=== PATIENT | male | born 1940 | race American Indian/Alaskan Native ===

== ENCOUNTER 2021-06-12 07:30 | Emergency (ER) | payer MEDICARE ==
[2021-06-12 08:49] LABS: Basophils % (Auto) 0.3 % (0.0-1.8); Eosinophils % (Auto) 0.4 % (0.0-4.3); Hematocrit 32.4 % (35.5-45.6); Hemoglobin 9.9 gm/dl (11.8-15.2); Lymphocytes # (Auto) 0.6 K/mm3 (1.2-5.4); Lymphocytes % (Auto) 7.5 % (13.4-35.0); Mean Corpuscular HGB Conc 31 % (32-34); Mean Corpuscular Volume 77 fl (84-94); Monocytes # (Auto) 0.4 K/mm3 (0.0-0.8); Monocytes % (Auto) 5.6 % (0.0-7.3); Platelet Count 148 K/mm3 (140-440); Red Blood Count 4.21 M/mm3 (3.65-5.03); Red Cell Distribution Width 13.3 % (13.2-15.2)
[2021-06-12 09:12] LABS: Alanine Aminotransferase 13 units/L (7-56); Albumin 4.2 g/dL (3.9-5); BUN/Creatinine Ratio 17; Blood Urea Nitrogen 17 mg/dL (9-20); Calcium 9.8 mg/dL (8.4-10.2); Hemolysis Index 2
--- NOTE | 2021-06-12 09:52 | XRay Report ---
ABDOMINAL SERIES WITH CHEST X-RAY ONE VIEW HISTORY: Vomiting COMPARISON: None. IMPRESSION: Single view of the chest demonstrates normal heart size and clear lungs. Supine and uprig ht views of the abdomen demonstrate no evidence for obstruction, fluid levels or free air. There is n ormal stool in the colon. Cholecystectomy changes are noted. Signer Name: Coleman Johnson Jr, MD Signed: 06/12/2021 9:47 AM Workstation Name: [id number]
[2021-06-12 09:59] LABS: Bilirubin,Direct < 0.2 mg/dL (0-0.2)
--- NOTE | 2021-06-12 11:09 | Emergency Department Report ---
ED N/V/D HPI - General Chief complaint: Nausea/Vomiting/Diarrhea Stated complaint: NAUSEA/VOMITING Time Seen by Provider: 06/12/21 07:42 Source: EMS Mode of arrival: Stretcher Limitations: Altered Mental Status - History of Present Illness Initial comments: 81-year-old male, history of CVA with right-sided deficits, hypertension, diabetes, presents to ED with nausea vomiting. Patient presented from his personal group home following a couple episodes of emesis. Patient denies any abdominal pain, chest pain, trouble breathing. Patient given Zofran by EMS. MD complaint: nausea, vomiting -: This morning Associated Abdominal Pain: No Severity: mild Improves with: none Worsens with: none Associated Symptoms: nausea/vomiting. denies: chest pain, fever/chills, shortness of breath - Related Data Home Medications Medication Instructions Recorded Confirmed Last Taken Metformin HCl [Fortamet ER] 1,000 mg PO QDAY 10/17/13 04/16/14 04/15/14 Tamsulosin [Flomax] 8 mg PO QDAY 10/17/13 04/16/14 04/14/14 glipiZIDE [glipiZIDE XL] 5 mg PO QDAY 10/17/13 04/16/14 04/15/14 Previous Rx's Medication Instructions Recorded Last Taken Type Clopidogrel [Plavix] 75 mg PO QDAY #30 tablet 10/21/13 04/15/14 Rx Pantoprazole [Protonix TAB] 40 mg PO QDAY #30 tablet 10/21/13 04/15/14 Rx Simvastatin (Nf) [Zocor TAB] 20 mg PO QHS #30 tablet 10/21/13 04/15/14 Rx hydrALAZINE [Apresoline TAB] 50 mg PO Q8H #90 tab 10/21/13 04/15/14 Rx lisinopriL [Zestril TAB] 20 mg PO QDAY #30 tablet 10/21/13 04/15/14 Rx levoFLOXacin [Levaquin] 500 mg PO QDAY #7 tablet 04/18/14 Unknown Rx oxyCODONE /ACETAMINOPHEN [Percocet 1 tab PO Q6H PRN #20 tablet 04/18/14 Unknown Rx 5/325 mg] Ondansetron [Zofran Odt] 4 mg PO Q8HR PRN #20 tab.rapdis 06/12/21 Unknown Rx Allergies Allergy/AdvReac Type Severity Reaction Status Date / Time No Known Allergies Allergy Unverified 10/17/13 17:37 ED Review of Systems ROS: Stated complaint: NAUSEA/VOMITING Other details as noted in HPI Comment: All other systems reviewed and negative Constitutional: denies: fever Respiratory: denies: shortness of breath Cardiovascular: denies: chest pain Gastrointestinal: vomiting. denies: abdominal pain, diarrhea ED Past Medical Hx - Past Medical History Previous Medical History?: Yes Hx Hypertension: Yes Hx CVA: Yes (2002) Hx Diabetes: Yes (x 20 years) Hx Renal Disease: Yes Hx Headaches / Migraines: Yes Hx Dementia: Yes Additional medical history: A-fib, hyperlipidemia, anemia, BPH, depressive disorder, hypothyroidism - Surgical History Past Surgical History?: Yes Hx Cholecystectomy: Yes Additional Surgical History: unsure what type - Social History Smoking Status: Never Smoker - Medications Home Medications: Home Medications Medication Instructions Recorded Confirmed Last Taken Type Metformin HCl [Fortamet ER] 1,000 mg PO QDAY 10/17/13 04/16/14 04/15/14 History Tamsulosin [Flomax] 8 mg PO QDAY 10/17/13 04/16/14 04/14/14 History glipiZIDE [glipiZIDE XL] 5 mg PO QDAY 10/17/13 04/16/14 04/15/14 History Clopidogrel [Plavix] 75 mg PO QDAY #30 tablet 10/21/13 04/16/14 04/15/14 Rx Pantoprazole [Protonix TAB] 40 mg PO QDAY #30 tablet 10/21/13 04/16/14 04/15/14 Rx Simvastatin (Nf) [Zocor TAB] 20 mg PO QHS #30 tablet 10/21/13 04/16/14 04/15/14 Rx hydrALAZINE [Apresoline TAB] 50 mg PO Q8H #90 tab 10/21/13 04/16/14 04/15/14 Rx lisinopriL [Zestril TAB] 20 mg PO QDAY #30 tablet 10/21/13 04/16/14 04/15/14 Rx levoFLOXacin [Levaquin] 500 mg PO QDAY #7 tablet 04/18/14 Unknown Rx oxyCODONE /ACETAMINOPHEN [Percocet 1 tab PO Q6H PRN #20 tablet 04/18/14 Unknown Rx 5/325 mg] Ondansetron [Zofran Odt] 4 mg PO Q8HR PRN #20 tab.rapdis 06/12/21 Unknown Rx ED Physical Exam - General Limitations: Altered Mental Status General appearance: alert, in no apparent distress - Head Head exam: Present: atraumatic, normocephalic - Eye Eye exam: Present: normal appearance, EOMI - ENT ENT exam: Present: mucous membranes moist - Neck Neck exam: Present: normal inspection - Respiratory Respiratory exam: Present: normal lung sounds bilaterally. Absent: respiratory distress - Cardiovascular Cardiovascular Exam: Present: regular rate, normal rhythm - GI/Abdominal GI/Abdominal exam: Present: soft. Absent: distended, tenderness - Extremities Exam Extremities exam: Present: normal inspection - Neurological Exam Neurological exam: Present: alert, oriented X3 - Psychiatric Psychiatric exam: Present: normal affect, normal mood - Skin Skin exam: Present: warm, dry, intact, normal color ED Course Vital Signs 06/12/21 06/12/21 06/12/21 07:59 08:27 08:40 Temperature 97.7 F Pulse Rate 88 90 93 H Respiratory 16 20 12 Rate Blood Pressure 119/65 Blood Pressure 132/72 [Left] O2 Sat by Pulse 96 98 97 Oximetry 06/12/21 06/12/21 06/12/21 09:00 09:30 10:00 Temperature Pulse Rate 89 90 94 H Respiratory 13 14 26 H Rate Blood Pressure 116/65 116/65 116/65 Blood Pressure [Left] O2 Sat by Pulse 99 97 98 Oximetry 06/12/21 06/12/21 06/12/21 10:30 11:00 11:12 Temperature Pulse Rate 91 H 87 87 Respiratory 20 12 12 Rate Blood Pressure 116/65 110/62 Blood Pressure 110/62 [Left] O2 Sat by Pulse 98 96 96 Oximetry 06/12/21 06/12/21 06/12/21 11:30 12:00 12:30 Temperature Pulse Rate 87 84 85 Respiratory 14 14 20 Rate Blood Pressure 110/62 116/62 116/62 Blood Pressure [Left] O2 Sat by Pulse 98 97 98 Oximetry 06/12/21 06/12/21 06/12/21 13:00 13:10 13:30 Temperature Pulse Rate 84 98 H 81 Respiratory 16 16 18 Rate Blood Pressure 112/61 112/61 Blood Pressure 112/61 [Left] O2 Sat by Pulse 97 97 99 Oximetry 06/12/21 13:49 Temperature Pulse Rate 81 Respiratory 18 Rate Blood Pressure Blood Pressure 112/61 [Left] O2 Sat by Pulse 99 Oximetry ED Medical Decision Making - Lab Data Result diagrams: 06/12/21 08:30 06/12/21 08:30 - EKG Data -: EKG Interpreted by [place] EKG shows normal: sinus rhythm, QRS complexes, ST-T waves Rate: normal - EKG Data Interpretation: no acute changes, other ([facility]) - Radiology Data Radiology results: report reviewed, image reviewed - Medical Decision Making 81-year-old male sent to the ED from his personal group home for vomiting. Patient is afebrile. Labs are unremarkable. Abdominal series shows no acute findings. Vital signs are stable. Patient has not had any episodes of emesis here in the ED. Patient tolerated p.o. challenge without incident. Abdomen remains soft and nontender. He will be discharged home at this time. Outpatient follow-up advised, return precautions given. - Differential Diagnosis Bowel obstruction, gastroenteritis, pancreatitis, ACS Critical care attestation.: If time is entered above; I have spent that time in minutes in the direct care of this critically ill patient, excluding procedure time. ED Disposition Clinical Impression: Nausea and vomiting Disposition: DC-01 TO HOME OR SELFCARE Is pt being admited?: No Condition: Stable Instructions: Nausea and Vomiting, Adult, [id number] Prescriptions: Ondansetron [Zofran Odt] 4 mg PO Q8HR PRN #20 tab.rapdis PRN Reason: Vomiting Referrals: PRIMARY CARE, [Primary Care Provider] - 3-5 Days Time of Disposition: 11:50
[2021-06-12 11:19] LABS: Bilirubin,Urine NEG (Negative); Blood,Urine NEG (Negative); Color,Urine Straw (Yellow); Protein,Urine <15 mg/dL mg/dL (Negative); RBC,Urine < 1.0 /HPF (0.0-6.0); Urobilinogen,Urine < 2.0 mg/dL (<2.0)
[2021-06-12 14:40] VITALS: BP 129/67
--- NOTE | 2021-06-13 14:06 | Electrocardiograph Report ---
[facility] Test Date: 2021-06-12 Test Time: 09:00:34 Pat Name: RADHA MYERS Department: Room: Gender: M Invas Tech: HOANG : 1940 Requested By: DYLLAN NGO Order Number: [id number] Reading MD: Kera Ruelas Measurements Intervals [place] Rate: 89 P: 41 OR: 251 QRS: -58 QRSD: 97 T: 39 QT: 389 QTc: 475 Interpretive Statements Sinus rhythm Prolonged OR interval Left anterior fascicular block No previous ECG available for comparison Electronically Signed On 06-13-2021 14:06:00 EDT by Kera Ruelas
== END 2021-06-12 16:58 | disposition home or self-care (01) ==
LOC: ED 07:30
DX: R11.2 Nausea with vomiting, unspecified (principal); I10 Essential (primary) hypertension; E11.9 Type 2 diabetes mellitus without complications; G43.909 Migraine, unspecified, not intractable, without status migrainosus; F03.90 Unspecified dementia, unspecified severity, without behavioral disturbance, psychotic disturbance, mood disturbance, and anxiety; Z90.49 Acquired absence of other specified parts of digestive tract; Z79.84 Long term (current) use of oral hypoglycemic drugs; Z79.2 Long term (current) use of antibiotics; Z79.899 Other long term (current) drug therapy
CPT/HCPCS: 36415; 74022; 80048; 80076; 81001; 83690; 84484; 85025; 93005

== ENCOUNTER 2022-07-29 02:21 | Emergency (ER) | payer MEDICARE ==
[2022-07-29 03:25] LABS: Mucus,Urine FEW /HPF
[2022-07-29 03:33] LABS: Color,Urine Yellow (Yellow); WBC,Urine < 1.0 /HPF (0.0-6.0)
--- NOTE | 2022-07-29 03:34 | Emergency Department Report ---
<FIGUEROA GARCIA - Last Filed: 07/29/22 04:58> ED Male HPI - General Chief complaint: Urogenital-Male Stated complaint: UTI Time Seen by Provider: 07/29/22 03:23 Source: EMS Mode of arrival: Stretcher Limitations: No Limitations - History of Present Illness Initial comments: 82 yo M sent in with concern for urinary infection as he appears to be a little confused more than his usual. No fever or chills reported. No other modifying or associated factors reported. - Related Data Home Medications Medication Instructions Recorded Confirmed Last Taken Metformin HCl [Fortamet ER] 1,000 mg PO QDAY 10/17/13 04/16/14 04/15/14 Tamsulosin [Flomax] 8 mg PO QDAY 10/17/13 04/16/14 04/14/14 glipiZIDE [glipiZIDE XL] 5 mg PO QDAY 10/17/13 04/16/14 04/15/14 Previous Rx's Medication Instructions Recorded Last Taken Type Clopidogrel [Plavix] 75 mg PO QDAY #30 tablet 10/21/13 04/15/14 Rx Pantoprazole [Protonix TAB] 40 mg PO QDAY #30 tablet 10/21/13 04/15/14 Rx Simvastatin (Nf) [Zocor TAB] 20 mg PO QHS #30 tablet 10/21/13 04/15/14 Rx hydrALAZINE [Apresoline TAB] 50 mg PO Q8H #90 tab 10/21/13 04/15/14 Rx lisinopriL [Zestril TAB] 20 mg PO QDAY #30 tablet 10/21/13 04/15/14 Rx levoFLOXacin [Levaquin] 500 mg PO QDAY #7 tablet 04/18/14 Unknown Rx oxyCODONE /ACETAMINOPHEN [Percocet 1 tab PO Q6H PRN #20 tablet 04/18/14 Unknown Rx 5/325 mg] Ondansetron [Zofran Odt] 4 mg PO Q8HR PRN #20 tab.rapdis 06/12/21 Unknown Rx Allergies Allergy/AdvReac Type Severity Reaction Status Date / Time No Known Allergies Allergy Unverified 10/17/13 17:37 ED Review of Systems Comment: All other systems reviewed and negative Genitourinary: dysuria, frequency Neurological: other (AMS) ED Past Medical Hx - Past Medical History Hx Hypertension: Yes Hx CVA: Yes (2002) Hx Diabetes: Yes (x 20 years) Hx Renal Disease: Yes Hx Headaches / Migraines: Yes Hx Dementia: Yes Additional medical history: A-fib, hyperlipidemia, anemia, BPH, depressive disorder, hypothyroidism - Surgical History Hx Cholecystectomy: Yes Additional Surgical History: unsure what type - Social History Smoking Status: Never Smoker - Medications Home Medications: Home Medications Medication Instructions Recorded Confirmed Last Taken Type Metformin HCl [Fortamet ER] 1,000 mg PO QDAY 10/17/13 04/16/14 04/15/14 History Tamsulosin [Flomax] 8 mg PO QDAY 10/17/13 04/16/14 04/14/14 History glipiZIDE [glipiZIDE XL] 5 mg PO QDAY 10/17/13 04/16/14 04/15/14 History Clopidogrel [Plavix] 75 mg PO QDAY #30 tablet 10/21/13 04/16/14 04/15/14 Rx Pantoprazole [Protonix TAB] 40 mg PO QDAY #30 tablet 10/21/13 04/16/14 04/15/14 Rx Simvastatin (Nf) [Zocor TAB] 20 mg PO QHS #30 tablet 10/21/13 04/16/14 04/15/14 Rx hydrALAZINE [Apresoline TAB] 50 mg PO Q8H #90 tab 10/21/13 04/16/14 04/15/14 Rx lisinopriL [Zestril TAB] 20 mg PO QDAY #30 tablet 10/21/13 04/16/14 04/15/14 Rx levoFLOXacin [Levaquin] 500 mg PO QDAY #7 tablet 04/18/14 Unknown Rx oxyCODONE /ACETAMINOPHEN [Percocet 1 tab PO Q6H PRN #20 tablet 04/18/14 Unknown Rx 5/325 mg] Ondansetron [Zofran Odt] 4 mg PO Q8HR PRN #20 tab.rapdis 06/12/21 Unknown Rx ED Physical Exam - General Limitations: No Limitations General appearance: alert, in no apparent distress - Head Head exam: Present: atraumatic, normal inspection - Eye Eye exam: Present: normal appearance Pupils: Present: normal accommodation - ENT ENT exam: Present: normal exam, normal orophraynx, mucous membranes moist - Respiratory Respiratory exam: Present: normal lung sounds bilaterally. Absent: respiratory distress, accessory muscle use - Cardiovascular Cardiovascular Exam: Present: regular rate, normal rhythm, normal heart sounds - GI/Abdominal GI/Abdominal exam: Present: soft, normal bowel sounds. Absent: distended, tenderness - Extremities Exam Extremities exam: Present: pedal edema (bilateral 2 ) - Back Exam Back exam: Absent: tenderness, CVA tenderness (R), CVA tenderness (L) - Neurological Exam Neurological exam: Present: alert - Psychiatric Psychiatric exam: Present: normal affect - Skin Skin exam: Present: warm, normal color ED Medical Decision Making - Medical Decision Making here with concern with mild confusion and suspected to UTI-- UA however noted to be unremarkable so will expand differentials-- to including CXR and order routine labs including CBC, CMP and thyroid profile-- In the meantime will give ivf ns 1L bolus x 1-- ED Disposition Clinical Impression: Confusion Disposition: 01 HOME / SELF CARE / HOMELESS Does the pt Need Aspirin: No Condition: Stable Instructions: Confusion Referrals: PRIMARY CARE, [Primary Care Provider] - 3-5 Days <RISA REN - Last Filed: 07/29/22 12:30> ED Review of Systems ROS: Stated complaint: UTI Other details as noted in HPI ED Course Vital Signs 07/29/22 07/29/22 07/29/22 02:47 02:55 03:01 Temperature 98.3 F Pulse Rate 88 83 Respiratory 18 16 21 Rate Blood Pressure 121/81 Blood Pressure 132/74 [Right] O2 Sat by Pulse 97 95 97 Oximetry 07/29/22 07/29/22 07/29/22 03:15 03:31 03:45 Temperature Pulse Rate 78 78 79 Respiratory 14 17 19 Rate Blood Pressure 129/78 130/79 130/82 Blood Pressure [Right] O2 Sat by Pulse 96 99 98 Oximetry 07/29/22 07/29/22 07/29/22 04:01 04:15 04:31 Temperature Pulse Rate 79 80 81 Respiratory 22 17 18 Rate Blood Pressure 121/65 124/69 122/66 Blood Pressure [Right] O2 Sat by Pulse 98 98 98 Oximetry 07/29/22 07/29/22 07/29/22 04:45 05:00 05:15 Temperature Pulse Rate 83 83 83 Respiratory 16 18 19 Rate Blood Pressure 129/74 129/74 114/80 Blood Pressure [Right] O2 Sat by Pulse 98 98 98 Oximetry 07/29/22 07/29/22 07/29/22 05:30 05:45 06:01 Temperature Pulse Rate 82 82 82 Respiratory 20 13 16 Rate Blood Pressure 133/77 133/77 133/77 Blood Pressure [Right] O2 Sat by Pulse 98 95 98 Oximetry 07/29/22 07/29/22 07/29/22 06:10 06:15 06:31 Temperature Pulse Rate 81 82 Respiratory 18 16 Rate Blood Pressure 133/77 114/80 Blood Pressure [Right] O2 Sat by Pulse 100 97 96 Oximetry 07/29/22 07/29/22 07/29/22 06:45 07:01 07:15 Temperature Pulse Rate 81 82 82 Respiratory 14 15 14 Rate Blood Pressure 114/80 114/80 114/80 Blood Pressure [Right] O2 Sat by Pulse 98 98 98 Oximetry 07/29/22 07/29/22 07/29/22 07:31 07:45 08:01 Temperature Pulse Rate 83 85 83 Respiratory 18 15 21 Rate Blood Pressure 114/80 114/80 114/80 Blood Pressure [Right] O2 Sat by Pulse 97 98 96 Oximetry 07/29/22 07/29/22 07/29/22 08:15 08:31 08:45 Temperature Pulse Rate 86 86 86 Respiratory 19 29 H 16 Rate Blood Pressure 114/80 114/80 114/80 Blood Pressure [Right] O2 Sat by Pulse 97 98 97 Oximetry 07/29/22 07/29/22 07/29/22 09:01 09:15 09:31 Temperature Pulse Rate 85 84 84 Respiratory 18 15 19 Rate Blood Pressure 114/80 114/80 114/80 Blood Pressure [Right] O2 Sat by Pulse 95 98 98 Oximetry ED Medical Decision Making - Lab Data Result diagrams: 07/29/22 05:01 07/29/22 05:01 Lab Results 07/29/22 07/29/22 07/29/22 Range/Units 03:03 05:01 05:01 WBC 4.4 L (4.5-11.0) K/mm3 RBC 4.16 (3.65-5.03) M/mm3 Hgb 10.2 L (11.8-15.2) gm/dl Hct 31.6 L (35.5-45.6) % MCV 76 L (84-94) fl MCH 25 L (28-32) pg MCHC 32 (32-34) % RDW 13.3 (13.2-15.2) % Plt Count 139 L (140-440) K/mm3 Lymph % (Auto) 30.5 (13.4-35.0) % [place] % (Auto) 10.9 H (0.0-7.3) % Eos % (Auto) 4.1 (0.0-4.3) % Baso % (Auto) 0.4 (0.0-1.8) % Lymph # (Auto) 1.3 (1.2-5.4) K/mm3 [place] # (Auto) 0.5 (0.0-0.8) K/mm3 Eos # (Auto) 0.2 (0.0-0.4) K/mm3 Baso # (Auto) 0.0 (0.0-0.1) K/mm3 Seg Neutrophils % 54.1 (40.0-70.0) % Seg Neutrophils # 2.4 (1.8-7.7) K/mm3 PT (12.2-14.9) Sec. INR (0.87-1.13) APTT (24.2-36.6) Sec. Sodium 136 L (137-145) mmol/L Potassium 4.0 (3.6-5.0) mmol/L Chloride 99.0 (98-107) mmol/L Carbon Dioxide 27 (22-30) mmol/L Anion Gap 14 mmol/L BUN 17 (9-20) mg/dL Creatinine 1.2 (0.8-1.3) mg/dL Estimated GFR > 60 ml/min BUN/Creatinine Ratio 14 % Glucose 210 H (75-100) mg/dL Lactic Acid (0.7-2.0) mmol/L Calcium 9.1 (8.4-10.2) mg/dL Total Bilirubin 0.40 (0.1-1.2) mg/dL AST 15 (5-40) units/L ALT 9 (7-56) units/L Alkaline Phosphatase 81 (35-129) units/L NT-Pro-B Natriuret Pep (0-900) pg/mL Total Protein 6.2 L (6.3-8.2) g/dL Albumin 4.0 (3.9-5) g/dL Albumin/Globulin Ratio 1.8 % Urine Color Yellow (Yellow) Urine Turbidity Clear (Clear) Specific [place] (Man) 1.005 (1.003-1.030) Ur Protein (Man) Negative (Negative) mg/dL Ur Ketones (Man) Negative (Negative) Ur Nitrite (Man) Negative (Negative) Ur Reducing Substances Not Reportable Urine Bilirubin (Man) Negative (Negative) Urine Ictotest Not Reportable Leukocyte Esterase (Man) Negative (Negative) Urine WBC (Auto) < 1.0 (0.0-6.0) /HPF Urine RBC (Auto) 26.0 (0.0-6.0) /HPF Urine RBC (Manual) 1+ (Negative) Urine Mucus Few /HPF 07/29/22 07/29/22 07/29/22 Range/Units 05:01 05:01 05:01 WBC (4.5-11.0) K/mm3 RBC (3.65-5.03) M/mm3 Hgb (11.8-15.2) gm/dl Hct (35.5-45.6) % MCV (84-94) fl MCH (28-32) pg MCHC (32-34) % RDW (13.2-15.2) % Plt Count (140-440) K/mm3 Lymph % (Auto) (13.4-35.0) % [place] % (Auto) (0.0-7.3) % Eos % (Auto) (0.0-4.3) % Baso % (Auto) (0.0-1.8) % Lymph # (Auto) (1.2-5.4) K/mm3 [place] # (Auto) (0.0-0.8) K/mm3 Eos # (Auto) (0.0-0.4) K/mm3 Baso # (Auto) (0.0-0.1) K/mm3 Seg Neutrophils % (40.0-70.0) % Seg Neutrophils # (1.8-7.7) K/mm3 PT 15.8 H (12.2-14.9) Sec. INR 1.13 (0.87-1.13) APTT 44.4 H (24.2-36.6) Sec. Sodium (137-145) mmol/L Potassium (3.6-5.0) mmol/L Chloride (98-107) mmol/L Carbon Dioxide (22-30) mmol/L Anion Gap mmol/L BUN (9-20) mg/dL Creatinine (0.8-1.3) mg/dL Estimated GFR ml/min BUN/Creatinine Ratio % Glucose (75-100) mg/dL Lactic Acid 2.50 H* (0.7-2.0) mmol/L Calcium (8.4-10.2) mg/dL Total Bilirubin (0.1-1.2) mg/dL AST (5-40) units/L ALT (7-56) units/L Alkaline Phosphatase (35-129) units/L NT-Pro-B Natriuret Pep 65.54 (0-900) pg/mL Total Protein (6.3-8.2) g/dL Albumin (3.9-5) g/dL Albumin/Globulin Ratio % Urine Color (Yellow) Urine Turbidity (Clear) Specific [place] (Man) (1.003-1.030) Ur Protein (Man) (Negative) mg/dL Ur Ketones (Man) (Negative) Ur Nitrite (Man) (Negative) Ur Reducing Substances Urine Bilirubin (Man) (Negative) Urine Ictotest Leukocyte Esterase (Man) (Negative) Urine WBC (Auto) (0.0-6.0) /HPF Urine RBC (Auto) (0.0-6.0) /HPF Urine RBC (Manual) (Negative) Urine Mucus /HPF 07/29/22 07/29/22 Range/Units 05:58 07:19 WBC (4.5-11.0) K/mm3 RBC (3.65-5.03) M/mm3 Hgb (11.8-15.2) gm/dl Hct (35.5-45.6) % MCV (84-94) fl MCH (28-32) pg MCHC (32-34) % RDW (13.2-15.2) % Plt Count (140-440) K/mm3 Lymph % (Auto) (13.4-35.0) % [place] % (Auto) (0.0-7.3) % Eos % (Auto) (0.0-4.3) % Baso % (Auto) (0.0-1.8) % Lymph # (Auto) (1.2-5.4) K/mm3 [place] # (Auto) (0.0-0.8) K/mm3 Eos # (Auto) (0.0-0.4) K/mm3 Baso # (Auto) (0.0-0.1) K/mm3 Seg Neutrophils % (40.0-70.0) % Seg Neutrophils # (1.8-7.7) K/mm3 PT (12.2-14.9) Sec. INR (0.87-1.13) APTT (24.2-36.6) Sec. Sodium (137-145) mmol/L Potassium (3.6-5.0) mmol/L Chloride (98-107) mmol/L Carbon Dioxide (22-30) mmol/L Anion Gap mmol/L BUN (9-20) mg/dL Creatinine (0.8-1.3) mg/dL Estimated GFR ml/min BUN/Creatinine Ratio % Glucose (75-100) mg/dL Lactic Acid 3.10 H* 1.60 (0.7-2.0) mmol/L Calcium (8.4-10.2) mg/dL Total Bilirubin (0.1-1.2) mg/dL AST (5-40) units/L ALT (7-56) units/L Alkaline Phosphatase (35-129) units/L NT-Pro-B Natriuret Pep (0-900) pg/mL Total Protein (6.3-8.2) g/dL Albumin (3.9-5) g/dL Albumin/Globulin Ratio % Urine Color (Yellow) Urine Turbidity (Clear) Specific [place] (Man) (1.003-1.030) Ur Protein (Man) (Negative) mg/dL Ur Ketones (Man) (Negative) Ur Nitrite (Man) (Negative) Ur Reducing Substances Urine Bilirubin (Man) (Negative) Urine Ictotest Leukocyte Esterase (Man) (Negative) Urine WBC (Auto) (0.0-6.0) /HPF Urine RBC (Auto) (0.0-6.0) /HPF Urine RBC (Manual) (Negative) Urine Mucus /HPF Critical Care Time: No Critical care attestation.: If time is entered above; I have spent that time in minutes in the direct care of this critically ill patient, excluding procedure time. ED Disposition Is pt being admited?: No Does the pt Need Aspirin: No Time of Disposition: 12:17
[2022-07-29] MEDS ORDERED: SODIUM CHLORIDE 0.9% 1000 ML 1,000 ML IV ONE ×2 (04:58→06:54)
[2022-07-29 05:23] LABS: Basophils % (Auto) 0.4 % (0.0-1.8); Eosinophils # (Auto) 0.2 K/mm3 (0.0-0.4); Eosinophils % (Auto) 4.1 % (0.0-4.3); Hematocrit 31.6 % (35.5-45.6); Hemoglobin 10.2 gm/dl (11.8-15.2); Lymphocytes # (Auto) 1.3 K/mm3 (1.2-5.4); Lymphocytes % (Auto) 30.5 % (13.4-35.0); Mean Corpuscular HGB Conc 32 % (32-34); Mean Corpuscular Volume 76 fl (84-94); Monocytes # (Auto) 0.5 K/mm3 (0.0-0.8); Monocytes % (Auto) 10.9 % (0.0-7.3); Platelet Count 139 K/mm3 (140-440); Red Blood Count 4.16 M/mm3 (3.65-5.03); Red Cell Distribution Width 13.3 % (13.2-15.2)
[2022-07-29 05:32] LABS: INR 1.13 (0.87-1.13)
[2022-07-29 05:33] LABS: Partial Thromboplastin Time 44.4 Sec. (24.2-36.6)
--- NOTE | 2022-07-29 05:53 | XRay Report ---
CHEST 1 VIEW INDICATION / CLINICAL INFORMATION: [facility] STUDY TIME: 512 COMPARISON: 06/12/2021 FINDINGS: SUPPORT DEVICES: None HEART / MEDIASTINUM: Stable. LUNGS / PLEURA: Mild elevation the left hemidiaphragm probably relates to gaseous distention of under lying stomach. Mild bibasilar atelectatic changes. Poor degree of inspiration is seen. No definite ac dwayne pneumonic infiltrates. No pneumothorax. ADDITIONAL FINDINGS: No significant additional findings. Signer Name: Kyle Rivers MD Signed: 07/29/2022 5:48 AM Workstation Name: [id number]
[2022-07-29 06:04] LABS: Alanine Aminotransferase 9 units/L (7-56); BUN/Creatinine Ratio 14; Blood Urea Nitrogen 17 mg/dL (9-20); Calcium 9.1 mg/dL (8.4-10.2); Hemolysis Index 5
--- NOTE | 2022-07-29 06:20 | Cat Scan Report ---
CT HEAD WITHOUT CONTRAST INDICATION: AMS TECHNIQUE: All CT scans at this location are performed using CT dose reduction for [place] by means of automated exposure control. COMPARISON: 04/16/2014, report unavailable FINDINGS: BRAIN: No hemorrhage or mass effect are seen. No evidence of acute infarction is noted. Moderate whit e matter microvascular changes are again seen. Mild atrophic changes are again noted. There is a lacu michelle infarction are again noted bilaterally without significant change. ORBITS: Normal as visualized. SOFT TISSUES OF HEAD: Normal. CALVARIUM: Normal. VISUALIZED PARANASAL SINUSES AND MASTOID AIR CELLS: Clear. ADDITIONAL FINDINGS: None. IMPRESSION: No acute intracranial abnormality. Signer Name: Kyle Rivers MD Signed: 07/29/2022 6:15 AM Workstation Name: [id number]
[2022-07-29 09:50] VITALS: BP 114/80
--- NOTE | 2022-07-29 12:17 | Emergency Department Report ---
Blank Doc - Documentation Documentation: 82-year-old male presents to the hospital for. I discussed this with patient nurse who accepted patient from EMS. Patient is from a personal detention. He is answering questions appropriately since ED stay and was crying initially and is closed with urine soaked. When I speak to patient he is alert and oriented x3 and denies any complaints at this time. Initial lactic acid elevation improved with IV hydration. No signs of infection or sepsis. CT head unremarkable. Patient does not appear to be altered and therefore will be sent back to the personal-detention CT HEAD WITHOUT CONTRAST INDICATION: AMS TECHNIQUE: All CT scans at this location are performed using CT dose reduction for ALARA by means of automated exposure control. COMPARISON: 04/16/2014, report unavailable FINDINGS: BRAIN: No hemorrhage or mass effect are seen. No evidence of acute infarction is noted. Moderate white matter microvascular changes are again seen. Mild atrophic changes are again noted. 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 ORBITS: Normal as visualized. SOFT TISSUES OF HEAD: Normal. CALVARIUM: Normal. VISUALIZED PARANASAL SINUSES AND MASTOID AIR CELLS: Clear. ADDITIONAL FINDINGS: None. IMPRESSION: No acute intracranial abnormality. CHEST 1 VIEW INDICATION / CLINICAL INFORMATION: AMS STUDY TIME: 512 COMPARISON: 06/12/2021 FINDINGS: SUPPORT DEVICES: None HEART / MEDIASTINUM: Stable. LUNGS / PLEURA: Mild elevation the left hemidiaphragm probably relates to gaseous distention of underlying stomach. Mild bibasilar atelectatic changes. Poor degree of inspiration is seen. No definite acute pneumonic infiltrates. No pneumothorax. ADDITIONAL FINDINGS: No significant additional findings. Lab Results 07/29/22 07/29/22 07/29/22 Range/Units 03:03 05:01 05:01 WBC 4.4 L (4.5-11.0) K/mm3 RBC 4.16 (3.65-5.03) M/mm3 Hgb 10.2 L (11.8-15.2) gm/dl Hct 31.6 L (35.5-45.6) % MCV 76 L (84-94) fl MCH 25 L (28-32) pg MCHC 32 (32-34) % RDW 13.3 (13.2-15.2) % Plt Count 139 L (140-440) K/mm3 Lymph % (Auto) 30.5 (13.4-35.0) % Hill % (Auto) 10.9 H (0.0-7.3) % Eos % (Auto) 4.1 (0.0-4.3) % Baso % (Auto) 0.4 (0.0-1.8) % Lymph # (Auto) 1.3 (1.2-5.4) K/mm3 Hill # (Auto) 0.5 (0.0-0.8) K/mm3 Eos # (Auto) 0.2 (0.0-0.4) K/mm3 Baso # (Auto) 0.0 (0.0-0.1) K/mm3 Seg Neutrophils % 54.1 (40.0-70.0) % Seg Neutrophils # 2.4 (1.8-7.7) K/mm3 PT (12.2-14.9) Sec. INR (0.87-1.13) APTT (24.2-36.6) Sec. Sodium 136 L (137-145) mmol/L Potassium 4.0 (3.6-5.0) mmol/L Chloride 99.0 (98-107) mmol/L Carbon Dioxide 27 (22-30) mmol/L Anion Gap 14 mmol/L BUN 17 (9-20) mg/dL Creatinine 1.2 (0.8-1.3) mg/dL Estimated GFR > 60 ml/min BUN/Creatinine Ratio 14 % Glucose 210 H (75-100) mg/dL Lactic Acid (0.7-2.0) mmol/L Calcium 9.1 (8.4-10.2) mg/dL Total Bilirubin 0.40 (0.1-1.2) mg/dL AST 15 (5-40) units/L ALT 9 (7-56) units/L Alkaline Phosphatase 81 (35-129) units/L NT-Pro-B Natriuret Pep (0-900) pg/mL Total Protein 6.2 L (6.3-8.2) g/dL Albumin 4.0 (3.9-5) g/dL Albumin/Globulin Ratio 1.8 % Urine Color Yellow (Yellow) Urine Turbidity Clear (Clear) Specific [place] (Man) 1.005 (1.003-1.030) Ur Protein (Man) Negative (Negative) mg/dL Ur Ketones (Man) Negative (Negative) Ur Nitrite (Man) Negative (Negative) Ur Reducing Substances Not Reportable Urine Bilirubin (Man) Negative (Negative) Urine Ictotest Not Reportable Leukocyte Esterase (Man) Negative (Negative) Urine WBC (Auto) < 1.0 (0.0-6.0) /HPF Urine RBC (Auto) 26.0 (0.0-6.0) /HPF Urine RBC (Manual) 1+ (Negative) Urine Mucus Few /HPF 07/29/22 07/29/22 07/29/22 Range/Units 05:01 05:01 05:01 WBC (4.5-11.0) K/mm3 RBC (3.65-5.03) M/mm3 Hgb (11.8-15.2) gm/dl Hct (35.5-45.6) % MCV (84-94) fl MCH (28-32) pg MCHC (32-34) % RDW (13.2-15.2) % Plt Count (140-440) K/mm3 Lymph % (Auto) (13.4-35.0) % Hill % (Auto) (0.0-7.3) % Eos % (Auto) (0.0-4.3) % Baso % (Auto) (0.0-1.8) % Lymph # (Auto) (1.2-5.4) K/mm3 Hill # (Auto) (0.0-0.8) K/mm3 Eos # (Auto) (0.0-0.4) K/mm3 Baso # (Auto) (0.0-0.1) K/mm3 Seg Neutrophils % (40.0-70.0) % Seg Neutrophils # (1.8-7.7) K/mm3 PT 15.8 H (12.2-14.9) Sec. INR 1.13 (0.87-1.13) APTT 44.4 H (24.2-36.6) Sec. Sodium (137-145) mmol/L Potassium (3.6-5.0) mmol/L Chloride (98-107) mmol/L Carbon Dioxide (22-30) mmol/L Anion Gap mmol/L BUN (9-20) mg/dL Creatinine (0.8-1.3) mg/dL Estimated GFR ml/min BUN/Creatinine Ratio % Glucose (75-100) mg/dL Lactic Acid 2.50 H* (0.7-2.0) mmol/L Calcium (8.4-10.2) mg/dL Total Bilirubin (0.1-1.2) mg/dL AST (5-40) units/L ALT (7-56) units/L Alkaline Phosphatase (35-129) units/L NT-Pro-B Natriuret Pep 65.54 (0-900) pg/mL Total Protein (6.3-8.2) g/dL Albumin (3.9-5) g/dL Albumin/Globulin Ratio % Urine Color (Yellow) Urine Turbidity (Clear) Specific [place] (Man) (1.003-1.030) Ur Protein (Man) (Negative) mg/dL Ur Ketones (Man) (Negative) Ur Nitrite (Man) (Negative) Ur Reducing Substances Urine Bilirubin (Man) (Negative) Urine Ictotest Leukocyte Esterase (Man) (Negative) Urine WBC (Auto) (0.0-6.0) /HPF Urine RBC (Auto) (0.0-6.0) /HPF Urine RBC (Manual) (Negative) Urine Mucus /HPF 07/29/22 07/29/22 Range/Units 05:58 07:19 WBC (4.5-11.0) K/mm3 RBC (3.65-5.03) M/mm3 Hgb (11.8-15.2) gm/dl Hct (35.5-45.6) % MCV (84-94) fl MCH (28-32) pg MCHC (32-34) % RDW (13.2-15.2) % Plt Count (140-440) K/mm3 Lymph % (Auto) (13.4-35.0) % Hill % (Auto) (0.0-7.3) % Eos % (Auto) (0.0-4.3) % Baso % (Auto) (0.0-1.8) % Lymph # (Auto) (1.2-5.4) K/mm3 Hill # (Auto) (0.0-0.8) K/mm3 Eos # (Auto) (0.0-0.4) K/mm3 Baso # (Auto) (0.0-0.1) K/mm3 Seg Neutrophils % (40.0-70.0) % Seg Neutrophils # (1.8-7.7) K/mm3 PT (12.2-14.9) Sec. INR (0.87-1.13) APTT (24.2-36.6) Sec. Sodium (137-145) mmol/L Potassium (3.6-5.0) mmol/L Chloride (98-107) mmol/L Carbon Dioxide (22-30) mmol/L Anion Gap mmol/L BUN (9-20) mg/dL Creatinine (0.8-1.3) mg/dL Estimated GFR ml/min BUN/Creatinine Ratio % Glucose (75-100) mg/dL Lactic Acid 3.10 H* 1.60 (0.7-2.0) mmol/L Calcium (8.4-10.2) mg/dL Total Bilirubin (0.1-1.2) mg/dL AST (5-40) units/L ALT (7-56) units/L Alkaline Phosphatase (35-129) units/L NT-Pro-B Natriuret Pep (0-900) pg/mL Total Protein (6.3-8.2) g/dL Albumin (3.9-5) g/dL Albumin/Globulin Ratio % Urine Color (Yellow) Urine Turbidity (Clear) Specific [place] (Man) (1.003-1.030) Ur Protein (Man) (Negative) mg/dL Ur Ketones (Man) (Negative) Ur Nitrite (Man) (Negative) Ur Reducing Substances Urine Bilirubin (Man) (Negative) Urine Ictotest Leukocyte Esterase (Man) (Negative) Urine WBC (Auto) (0.0-6.0) /HPF Urine RBC (Auto) (0.0-6.0) /HPF Urine RBC (Manual) (Negative) Urine Mucus /HPF
== END 2022-07-29 18:55 | disposition home or self-care (01) ==
LOC: ED 02:21
DX: N39.0 Urinary tract infection, site not specified (principal); I10 Essential (primary) hypertension; E11.9 Type 2 diabetes mellitus without complications; Z90.49 Acquired absence of other specified parts of digestive tract; R41.0 Disorientation, unspecified
CPT/HCPCS: 36415; 70450; 71045; 80053; 81001; 82140; 83880; 85025; 85610; 85730; 96360; 96361; 99285; J7030